=== PATIENT | female | born 1980 | race Caucasian/White ===

== ENCOUNTER 2017-03-09 12:28 | Emergency (ER) | payer MEDICAID ==
[~2017-03-09 12:28] MED LIST: LABE100 PO; PNV-TAB PO; WELL150T PO
[2017-03-09 12:31] VITALS: BP 151/84; PULSE 81; RESP 18; TEMP 98.6; O2SAT 98
--- NOTE | 2017-03-09 12:57 | PD ---
HPI Chief Complaint: Skin Problem Time Seen by Provider: 12:50 Travel History International Travel<30 days: No Contact w/Intl Traveler<30days: No Traveled to known affect area: No History of Present Illness HPI 36-year-old female presents emergency department for ring removal to her left fourth digit. Patient reports she fell asleep with the ring on her left fourth digit and when she woke this morning the finger swollen she was unable to remove the ring. She denies numbness/tingling with this weakness in the finger. She denies injury to the hand. Symptom severity is mild. PFSH Past Medical History Medical History: Denies Significant Hx Anxiety: Yes Diminished Hearing: No Hypertension: Yes Migraines: Yes Tetanus Vaccination: < 5 Years Influenza Vaccination: No ?: Unknown LMP: NON DUE TO B/C PER PT Past Surgical History Surgical History: No Previous Surgery Cholecystectomy: Yes Oral Surgery: Yes (WISDOM TEETH) Social History Alcohol Use: No Tobacco Use: No Substance Use: No Allergies-Medications (Allergen,Severity, Reaction): Coded Allergies: cephalexin (Unverified Allergy, Mild, 03/09/17) penicillin G (Unverified Allergy, Mild, 03/09/17) Reported Meds & Prescriptions Reported Meds & Active Scripts Active Trandate 100 mg Tab (Labetalol HCl) 100 Mg Tab 100 Mg PO BID Pnv-Select ( Vit W/ Ferrous Fumara) Tab 1 Tab PO DAILY Reported Wellbutrin Sr (Bupropion HCl) 150 Mg Tab 150 Mg PO BID Review of Systems Except as stated in HPI: all other systems reviewed are Neg Physical Exam Narrative GENERAL: Well-nourished, well-developed patient. SKIN: Focused skin assessment warm/dry. HEAD: Normocephalic. EYES: No scleral icterus. No injection or drainage. NECK: Supple, trachea midline. No JVD or lymphadenopathy. MUSCULOSKELETAL: No cyanosis, or edema. Left hand: 1 ring present to the left fourth digit. There is mild swelling around the ring. The extremity is neurovascularly intact. Patient has full range of motion normal sensation. Data Data Last Documented VS Vital Signs Date Time Temp Pulse Resp B/P (MAP) Pulse Ox O2 Delivery O2 Flow Rate FiO2 03/09/17 12:31 98.6 81 18 151/84 (106) 98 MDM Medical Decision Making Medical Screen Exam Complete: Yes Emergency Medical Condition: Yes Differential Diagnosis Ring removal Narrative Course 36-year-old female here for removal left fourth digit. No trauma to the hand. The ring was manually removed. Patient tolerated procedure well. Postprocedure patient has full range of motion normal sensation of the digit. Diagnosis Primary Impression: Finger pain Qualified Codes: M79.645 - Pain in left finger(s) Referrals: Primary Care Physician Disposition: 01 DISCHARGE HOME Condition: Stable Hilaria Velasco Mar 09, 2017 12:57
== END 2017-03-09 13:59 | disposition home or self-care (01) ==
LOC: PHEFT 12:28
DX: M79.645 Pain in left finger(s) (principal); I10 Essential (primary) hypertension
CPT/HCPCS: 99282